=== PATIENT | female | born 1985 | race Caucasian/White ===

== ENCOUNTER 2018-10-03 09:58 | Emergency (ER) | payer MEDICAID ==
[~2018-10-03] VITALS: Ht 162.6 cm; Wt 62.6 kg
[~2018-10-03 09:58] MED LIST: IBUP-1842 PO
[2018-10-03 10:00] VITALS: BP 113/71
--- NOTE | 2018-10-03 10:13 | NUR ---
Patient transferred to bed 4 via wheelchair by triage nurse. RN evaluating patient at bedside.
--- NOTE | 2018-10-03 10:15 | NUR ---
bib friend c/o left lower leg chronic wound & pain x one month and half. pt reported she had a fall at work one month and half & left knee fracture & open wounds on left lower leg bilateral, 5X5CM AND 2X3CM WITH BLACK SCAR COVERED. WOUNDS ARE COVERED WTH GAUGE AT THIS TIME. PATIENT STATES PAIN OF 9/10 AT THIS TIME; VSS; PATIENT POSITIONED FOR COMFORT; HOB ELEVATED; BEDRAILS UP X1; BED DOWN. ER MD MADE AWARE OF PT STATUS.
--- NOTE | 2018-10-03 10:33 | NUR ---
Dr. Kim evaluating patient at bedside.
[2018-10-03 10:58] VITALS: BP 110/70
--- NOTE | 2018-10-03 10:58 | NUR ---
Patient discharged with v/s stable. Written and verbal after care instructions given and explained. Patient alert, oriented and verbalized understanding of instructions. Carried with steady gait. All questions addressed prior to discharge. ID band removed. Patient advised to follow up with PMD. Rx of Bactrim, Keflex, and Motrin given. Patient educated on indication of medication including possible reaction and side effects. Opportunity to ask questions provided and answered.
== END 2018-10-03 10:58 | disposition home or self-care (01) ==
LOC: MED 09:58
DX: L97.929 Non-pressure chronic ulcer of unspecified part of left lower leg with unspecified severity (principal); R11.0 Nausea; Z79.899 Other long term (current) drug therapy; Z88.5 Allergy status to narcotic agent; Z88.6 Allergy status to analgesic agent
CPT/HCPCS: 81002; 81025; 99283

== ENCOUNTER 2019-04-10 10:34 | Emergency (ER) | payer MEDICAID ==
[~2019-04-10] VITALS: Ht 149.9 cm; Wt 71.7 kg
[2019-04-10 10:41] VITALS: BP 135/50
--- NOTE | 2019-04-10 10:46 | NUR ---
PT TO USE RESTROOM
--- NOTE | 2019-04-10 10:51 | NUR ---
Patient ambulated to bed 12. RN evaluating patient at bedside.
--- NOTE | 2019-04-10 10:54 | NUR ---
34YO F C/O R FLANK PAIN X 4 DAYS. PT STATES PAIN OF 3/10 RADIATING TO ABDOMEN. PT ALSO WITH N/V/D FOR 4 DAYS. PT REPORTS DYSURIA X 12 DAYS, -HEMATURIA. VSS. ABDOMEN SOFT, NON-TENDER, BS ACTIVE ON ALL QUADS. PT POSITIONED COMFORTABLY IN BED. ER MD AWARE OF PT STATUS. ALLERGIES: ACETAMINOPHEN, HYDROCODONE PMH: HYPERCHOLESTEROLEMIA MEDS: NONE
[2019-04-10] MEDS ORDERED: IBUPROFEN 600 MG TAB PO ONE (11:00)
[2019-04-10 11:20] LABS: APPEARANCE,URINE SL CLOUDY (CLEAR); BILIRUBIN,URINE NEGATIVE (NEGATIVE); BLOOD, URINE 3+ (NEGATIVE); COLOR,URINE YELLOW (YELLOW); LEUKOCYTE ESTERASE ,URINE 1+ (NEGATIVE); NITRITE, URINE NEGATIVE (NEGATIVE); PH,URINE 6.5 (5.0-9.0); UGLUCOSE NEGATIVE (NEGATIVE)
[2019-04-10 11:37] LABS: RBC,URINE 11-20 (MOD) /HPF (0-5); WBC,URINE 16-25 (MOD) /HPF (0-5)
[2019-04-10 13:57] VITALS: BP 135/50
== END 2019-04-10 13:58 | disposition home or self-care (01) ==
LOC: MED 10:34
DX: M54.9 Dorsalgia, unspecified (principal); R11.2 Nausea with vomiting, unspecified; R19.7 Diarrhea, unspecified; Z79.899 Other long term (current) drug therapy; Z88.6 Allergy status to analgesic agent; Z88.5 Allergy status to narcotic agent
CPT/HCPCS: 81001; 81025; 87086; 87186; 99283